=== PATIENT | female | born 1970 | race Caucasian/White ===

== ENCOUNTER 2022-02-24 08:46 | Emergency (ER) | payer OTHER ==
[~2022-02-24] VITALS: Ht 203.2 cm; Wt 94.8 kg
[2022-02-24] MEDS ORDERED: ULTRAM50 MG PO (09:47)
== END 2022-02-24 10:30 | disposition home or self-care (01) ==
LOC: ED 08:46
DX: S80.01XA Contusion of right knee, initial encounter (principal); S09.90XA Unspecified injury of head, initial encounter; Z88.1 Allergy status to other antibiotic agents; Z88.8 Allergy status to other drugs, medicaments and biological substances; W17.89XA Other fall from one level to another, initial encounter; Y93.89 Activity, other specified; Y92.89 Other specified places as the place of occurrence of the external cause; Y99.8 Other external cause status